=== PATIENT | male | born 1985 ===

== ENCOUNTER 2018-08-26 09:51 | Outpatient (CLI) | payer OTHER ==
--- NOTE | 2018-08-26 12:22 | MRI ---
MRI RIGHT SHOULDER: 08/26/2018 PROVIDED CLINICAL HISTORY: Right shoulder pain, status post injury. FINDINGS: The components of the rotator cuff appear intact. The longhead biceps tendon appears intact and norm ally located. The glenoid labrum and glenohumeral articular cartilage are suboptimally evaluated in the absence of joint distention. There is a full-thickness articular cartilage defect involving the posterior-super ior aspect of the humeral head, measuring about 1 cm in transverse dimension and about 1.5 cm in AP d imension. There is an irregular appearance to the anterior-inferior glenoid labrum, suspicious for t ear with associated stripping of the scapular periosteum. There is mild irregularity of the adjacent glenoid articular cartilage. There is somewhat ill-defined material present within the axillary recess, presumably reflecting disp laced humeral head articular cartilage. Acromioclavicular joint osteoarthrosis is demonstrated without significant mass effect upon the subja cent supraspinatus. Regional marrow and muscular signal appear otherwise unremarkable. IMPRESSION: 1. Full-thickness, displaced articular cartilage defect involving the humeral head, with chondral ma terial suspected in the axillary recess. 2. Findings suspicious for tear involving the anterior-inferior glenoid labrum with stripping of the scapular periosteum and articular cartilage irregularity involving the adjacent glenoid. POS: OFF
== END 2018-08-26 09:52 | disposition home or self-care (01) ==
LOC: SCSMRI 09:51
PROVIDERS: ATTEND Nurse Practitioner Family
DX: S49.91XA Unspecified injury of right shoulder and upper arm, initial encounter (principal); M24.111 Other articular cartilage disorders, right shoulder